=== PATIENT | male | born 1950 | race Caucasian/White ===

== ENCOUNTER 2019-09-17 09:25 | Inpatient (IN) | payer MEDICAID ==
[~2019-09-17] VITALS: Ht 165.1 cm; Wt 89.8 kg
[~2019-09-17 09:25] MED LIST: ASPI-1158; DOCU-138; FLUO20CA33; INS7030; INSLAN; LISI10TA5; MEMA10TA2; METF500T3; MOM; NIFE60TA18; RANI150C12; SENN8.6C5; TAMS-11
[2019-09-17] MEDS ORDERED: ONDANSETRON HCL 4MG/2ML INJ IV STA (09:54)
[2019-09-17] MEDS ORDERED: SODIUM CHLORIDE 0.9% 1,000 ML IV ONE (09:54)
[2019-09-17 10:20] LABS: BASOPHILS % 0.3 % (0.0-2.0); HEMATOCRIT. 43.6 % (42.0-52.0); HEMOGLOBIN. 14.5 g/dL (14.0-18.0); LYMPHOCYTES % 16.6 % (20.0-50.0); MEAN CORPUSCULAR VOLUME 87.4 fL (80.0-94.0); MEAN PLATELET VOLUME 10.7 fl (7.4-10.4); MONOCYTES % 10.9 % (2.0-8.0); NEUTROPHILS % 72.2 % (40.0-76.0); PLATELET 189 x1000/uL (130-400); RED BLOOD CELL COUNT 4.99 mill/uL (4.7-6.1); RED CELL DISTRIBUTION WIDTH 14.7 % (11.6-14.6)
[2019-09-17 10:28] LABS: CHLORIDE 100 mEq/L (98-107)
[2019-09-17 10:30] LABS: PROTHROMBIN TIME 10.4 sec (9.6-11.0)
[2019-09-17] MEDS ORDERED: PANTOPRAZOLE SODIUM 40 MG/VIAL IV SCH (13:00)
[2019-09-17] MEDS ORDERED: ONDANSETRON HCL 4MG/2ML INJ IV PRN (13:00)
[2019-09-17] MEDS: MORPHINE SULFATE 2 MG/ML CPJ (NOT FOR IM USE) IV PRN ×2 (14:16→22:12)
[2019-09-17 16:00] VITALS: BP 165/89
[2019-09-17] MEDS: HYDRALAZINE 20MG/ML VIAL IV PRN (16:00)
[2019-09-17 16:24] VITALS: BP 165/89
[2019-09-17] MEDS ORDERED: PNEUMOCOCCAL 23-VAL P-SAC VAC 0.5 ML IM ONE (17:00)
[2019-09-17] MEDS: PANTOPRAZOLE SODIUM 40 MG/VIAL IV SCH (17:10)
[2019-09-17 20:00] VITALS: BP 120/64
[2019-09-17] MEDS ORDERED: DEXTROSE 50% WATER 50ML SYRINGE IV PRN (20:15)
[2019-09-17] MEDS: BLOOD SUGAR DIAGNOSTIC STRIP TEST SCH (21:00)
[2019-09-17] MEDS: INSULIN LISPRO 100 UNITS/ML SUBCUT SCH (22:11)
[2019-09-17] MEDS: DEXT 5%/0.45% NACL 1000ML 1,000 ML IV SCH (22:32)
[2019-09-18] VITALS: BP 164/72
[2019-09-18 04:00] VITALS: BP 170/64
[2019-09-18] MEDS: DEXT 5%/0.45% NACL 1000ML 1,000 ML IV SCH ×3 (05:19→20:29)
[2019-09-18] MEDS: MORPHINE SULFATE 2 MG/ML CPJ (NOT FOR IM USE) IV PRN (05:20)
[2019-09-18] MEDS: BLOOD SUGAR DIAGNOSTIC STRIP TEST SCH ×4 (06:00→21:03)
[2019-09-18 06:01] VITALS: BP 158/63
[2019-09-18] MEDS: INSULIN LISPRO 100 UNITS/ML SUBCUT SCH ×4 (06:28→21:12)
[2019-09-18 06:30] LABS: CHLORIDE 104 mEq/L (98-107)
[2019-09-18 06:31] LABS: BASOPHILS % 0.2 % (0.0-2.0); EOSINOPHILS % 0.3 % (0.0-5.0); HEMOGLOBIN. 11.8 g/dL (14.0-18.0); MEAN CORPUSCULAR HEMOGLOBIN 29.4 pg (28.0-32.0); MEAN CORPUSCULAR VOLUME 87.1 fL (80.0-94.0); MEAN PLATELET VOLUME 10.7 fl (7.4-10.4); MONOCYTES % 11.8 % (2.0-8.0); NEUTROPHILS % 61.7 % (40.0-76.0); PLATELET 163 x1000/uL (130-400); RED BLOOD CELL COUNT 4.02 mill/uL (4.7-6.1); RED CELL DISTRIBUTION WIDTH 14.8 % (11.6-14.6)
[2019-09-18 08:00] VITALS: BP 145/63
[2019-09-18] MEDS: PANTOPRAZOLE SODIUM 40 MG/VIAL IV SCH ×2 (08:57→21:11)
[2019-09-18 12:00] VITALS: BP 147/63
[2019-09-18] MEDS ORDERED: MIDAZOLAM HCL 5 MG/5 ML VIAL IV PRN (14:07)
[2019-09-18] MEDS ORDERED: MIDAZOLAM HCL 5 MG/5 ML VIAL ONE (14:07)
[2019-09-18] MEDS ORDERED: FENTANYL CITRATE/PF 50MCG/ML 2ML VIAL ONE (14:07)
[2019-09-18] MEDS ORDERED: FENTANYL CITRATE/PF 50MCG/ML 2ML VIAL IV PRN (14:07)
[2019-09-18] MEDS ORDERED: DIAZEPAM 5 MG/ML 2ML CPJ ONE (14:19)
[2019-09-18] MEDS ORDERED: DIAZEPAM 5 MG/ML 2ML CPJ IV PRN (14:19)
[2019-09-18] MEDS: SUCRALFATE 1G TABLET PO SCH ×2 (17:37→21:12)
[2019-09-18] MEDS: METOCLOPRAMIDE HCL 10MG/2ML VIAL IV SCH ×2 (17:38→21:12)
[2019-09-18 17:56] LABS: HEMATOCRIT 34.4 % (42.0-52.0); HEMOGLOBIN 11.5 g/dL (14.0-18.0)
[2019-09-18 20:00] VITALS: BP 153/65
[2019-09-19] VITALS: BP 151/56
[2019-09-19 04:00] VITALS: BP 136/56
[2019-09-19 06:15] LABS: BASOPHILS % 0.4 % (0.0-2.0); EOSINOPHILS % 2.8 % (0.0-5.0); HEMATOCRIT. 36.2 % (42.0-52.0); HEMOGLOBIN. 11.8 g/dL (14.0-18.0); LYMPHOCYTES % 32.8 % (20.0-50.0); MEAN CORPUSCULAR HEMOGLOBIN 28.6 pg (28.0-32.0); MEAN PLATELET VOLUME 10.6 fl (7.4-10.4); MONOCYTES % 10.8 % (2.0-8.0); NEUTROPHILS % 53.2 % (40.0-76.0); PLATELET 152 x1000/uL (130-400); RED BLOOD CELL COUNT 4.12 mill/uL (4.7-6.1); RED CELL DISTRIBUTION WIDTH 14.7 % (11.6-14.6)
[2019-09-19 06:21] LABS: CHLORIDE 105 mEq/L (98-107)
[2019-09-19] MEDS: BLOOD SUGAR DIAGNOSTIC STRIP TEST SCH ×4 (06:46→21:56)
[2019-09-19] MEDS: SUCRALFATE 1G TABLET PO SCH ×4 (06:52→21:56)
[2019-09-19] MEDS: METOCLOPRAMIDE HCL 10MG/2ML VIAL IV SCH ×4 (06:52→21:56)
[2019-09-19] MEDS: INSULIN LISPRO 100 UNITS/ML SUBCUT SCH ×4 (06:53→21:55)
[2019-09-19 08:00] VITALS: BP 138/55
[2019-09-19] MEDS: PANTOPRAZOLE SODIUM 40 MG/VIAL IV SCH ×2 (08:37→21:55)
[2019-09-19 12:00] VITALS: BP 150/63
[2019-09-19] MEDS ORDERED: PNEUMOCOCCAL 23-VAL P-SAC VAC 0.5 ML IM ONE (13:00)
[2019-09-19 16:00] VITALS: BP 142/56
[2019-09-19 20:00] VITALS: BP 157/67
[2019-09-20] VITALS (7 sets, daily range): BP systolic 132–191; BP diastolic 60–84
[2019-09-20] MEDS: METOCLOPRAMIDE HCL 10MG/2ML VIAL IV SCH ×2 (06:04→12:32)
[2019-09-20] MEDS: BLOOD SUGAR DIAGNOSTIC STRIP TEST SCH ×2 (06:04→12:08)
[2019-09-20] MEDS: SUCRALFATE 1G TABLET PO SCH ×2 (06:04→12:32)
[2019-09-20] MEDS: INSULIN LISPRO 100 UNITS/ML SUBCUT SCH ×2 (06:12→12:32)
[2019-09-20] MEDS: PANTOPRAZOLE SODIUM 40 MG/VIAL IV SCH (08:42)
[2019-09-20] MEDS: HYDRALAZINE 20MG/ML VIAL IV PRN ×3 (08:51→18:19)
[2019-09-20] MEDS ORDERED: HYDRALAZINE HCL 50MG TABLET PO NR (13:00)
== END 2019-09-20 18:30 | DRG 242 ==
LOC: ER 09:41 → EDBEDREQTM 11:54 → EDBEDREQ 11:54 → 5WST 12:42 → EDBEDREQ 12:44 → EDBEDREQTM 12:44 → ENRESERV 13:32 → 5WST 16:03
PROVIDERS: ADMIT Hospitalist; ATTEND Hospitalist
PROC: 0D9670Z Drainage of Stomach with Drainage Device, Via Natural or Artificial Opening (ICD-10-PCS; 2019-09-17)
PROC: 0DB78ZX Excision of Stomach, Pylorus, Via Natural or Artificial Opening Endoscopic, Diagnostic (ICD-10-PCS; principal; 2019-09-18)
DX: K22.11 Ulcer of esophagus with bleeding (principal); E44.1 Mild protein-calorie malnutrition; E87.1 Hypo-osmolality and hyponatremia; E66.9 Obesity, unspecified; K29.70 Gastritis, unspecified, without bleeding; E11.9 Type 2 diabetes mellitus without complications; F32.9 Major depressive disorder, single episode, unspecified; I10 Essential (primary) hypertension; N40.0 Benign prostatic hyperplasia without lower urinary tract symptoms; Z87.891 Personal history of nicotine dependence; Z86.73 Personal history of transient ischemic attack (TIA), and cerebral infarction without residual deficits; Z79.82 Long term (current) use of aspirin; Z68.32 Body mass index [BMI] 32.0-32.9, adult
CPT/HCPCS: 36415; 71045; 74176; 80053; 82962; 83036; 85014; 85018; 85025; 86850; 86900; 88305; 88312; 88313; 90732; 93005; 93970; 96374; 99291; C9113; J0360; J1815; J2250; J2270; J2405; J2765; J3010; J7030

== ENCOUNTER 2020-03-06 13:58 | Inpatient (IN) | payer MEDICAID ==
[~2020-03-06] VITALS: Ht 165.1 cm; Wt 88.9 kg
[~2020-03-06 13:58] MED LIST changes: -ASPI-1158; +ASPI-1158 PO; -DOCU-138; +DOCU-138 PO; -FLUO20CA33; +FLUO20CA33 PO; -INSLAN; +INSLAN SUBCUT; -LISI10TA5; +LISI10TA5 PO; -MEMA10TA2; +MEMA10TA2 PO; -NIFE60TA18; +NIFE60TA18 PO; -SENN8.6C5; +SENN8.6C5 PO; -TAMS-11; +TAMS-11 PO
[2020-03-06] MEDS ORDERED: MORPHINE SULFATE 4 MG/ML CPJ (NOT FOR IM USE) IV STA (15:19)
[2020-03-06] MEDS ORDERED: ACETAMINOPHEN 325MG TABLET PO STA (15:19)
[2020-03-06 15:36] LABS: BASOPHILS % 0.3 % (0.0-2.0); EOSINOPHILS % 1.7 % (0.0-5.0); HEMATOCRIT. 42.9 % (42.0-52.0); LYMPHOCYTES % 37.5 % (20.0-50.0); MEAN CORPUSCULAR HEMOGLOBIN 28.3 pg (28.0-32.0); MEAN CORPUSCULAR VOLUME 86.6 fL (80.0-94.0); MEAN PLATELET VOLUME 10.7 fl (7.4-10.4); MONOCYTES % 8.9 % (2.0-8.0); NEUTROPHILS % 51.6 % (40.0-76.0); PLATELET 233 x1000/uL (130-400); RED BLOOD CELL COUNT 4.96 mill/uL (4.7-6.1); RED CELL DISTRIBUTION WIDTH 15.8 % (11.6-14.6)
[2020-03-06 15:48] LABS: CLARITY URINE CLEAR (CLEAR); COLOR URINE YELLOW (YELLOW); KETONES URINE TRACE (NEGATIVE); LEUKOCYTE ESTERASE URINE NEGATIVE (NEGATIVE); NITRITE URINE NEGATIVE (NEGATIVE); OCCULT BLOOD URINE NEGATIVE (NEGATIVE); PROTEIN URINE 3+ (NEGATIVE); SPECIFIC GRAVITY URINE 1.037 (1.005-1.030)
[2020-03-06 16:11] LABS: CHLORIDE 103 mEq/L (98-107)
[2020-03-06] MEDS ORDERED: DEXTROSE 50% WATER 50ML SYRINGE IV PRN (19:30)
[2020-03-06] MEDS ORDERED: ZOLPIDEM TARTRATE 5MG TABLET PO PRN (19:30)
[2020-03-06] MEDS ORDERED: ACETAMINOPHEN 325MG TABLET PO PRN (19:30)
[2020-03-06] MEDS ORDERED: SENNOSIDES 8.6MG TABLET PO PRN (19:30)
[2020-03-06] MEDS ORDERED: CLONIDINE 0.1MG TABLET PO PRN (19:30)
[2020-03-06] MEDS ORDERED: ONDANSETRON HCL 4MG/2ML INJ IV PRN (19:30)
[2020-03-06] MEDS ORDERED: DIPHENHYDRAMINE 50MG/ML VIAL IV PRN (19:30)
[2020-03-06] MEDS ORDERED: MAGNESIUM HYDROXIDE 400MG/5ML 30ML UDC PO PRN (19:30)
[2020-03-06] MEDS ORDERED: MAGNESIUM/ALUMINUM HYDROXIDE/SIMETHICONE 30ML UDC PO PRN (19:30)
[2020-03-06 21:05] VITALS: BP 165/79
[2020-03-06] MEDS: FAMOTIDINE 20MG TABLET PO SCH (21:59)
[2020-03-06] MEDS: ENOXAPARIN 40MG/0.4ML SYR SUBCUT SCH (21:59)
[2020-03-06] MEDS: BLOOD SUGAR DIAGNOSTIC STRIP TEST SCH (22:00)
[2020-03-06] MEDS: SODIUM CHLORIDE 0.9% INJ 3ML FLUSH IVF SCH (22:00)
[2020-03-06] MEDS: INSULIN GLARGINE UD 100 UNITS/ML SYR SUBCUT SCH (22:00)
[2020-03-06] MEDS: INSULIN LISPRO 100 UNITS/ML SUBCUT SCH (22:01)
[2020-03-07] VITALS: BP 152/77
[2020-03-07 04:00] VITALS: BP 155/75
[2020-03-07] MEDS: BLOOD SUGAR DIAGNOSTIC STRIP TEST SCH ×4 (06:13→21:18)
[2020-03-07] MEDS: SODIUM CHLORIDE 0.9% INJ 3ML FLUSH IVF SCH ×3 (06:13→21:18)
[2020-03-07 08:00] VITALS: BP 133/60
[2020-03-07] MEDS: FLUOXETINE HCL 20MG CAPSULE PO SCH (08:57)
[2020-03-07] MEDS: INSULIN LISPRO 100 UNITS/ML SUBCUT SCH ×4 (08:57→21:18)
[2020-03-07] MEDS: ACETAMINOPHEN 325MG TABLET PO PRN ×2 (08:57→16:59)
[2020-03-07] MEDS: TAMSULOSIN HCL 0.4MG SR CAPSULE PO SCH (08:58)
[2020-03-07] MEDS: ASPIRIN 81MG EC TABLET PO SCH (08:58)
[2020-03-07] MEDS: FAMOTIDINE 20MG TABLET PO SCH ×2 (08:58→21:17)
[2020-03-07] MEDS: NIFEDIPINE XL 60MG TAB PO SCH (08:58)
[2020-03-07] MEDS: MEMANTINE HCL 10MG TABLET PO SCH (08:58)
[2020-03-07] MEDS: METFORMIN HCL 850MG TABLET PO SCH ×2 (08:58→16:57)
[2020-03-07] MEDS: LISINOPRIL 10MG TABLET PO SCH (08:58)
[2020-03-07] MEDS: DOCUSATE SODIUM 100MG CAPSULE PO SCH ×2 (08:58→16:58)
[2020-03-07 12:00] VITALS: BP 141/68
[2020-03-07 16:00] VITALS: BP 143/66
[2020-03-07 20:00] VITALS: BP 136/68
[2020-03-07] MEDS: ENOXAPARIN 40MG/0.4ML SYR SUBCUT SCH (21:17)
[2020-03-07] MEDS: INSULIN GLARGINE UD 100 UNITS/ML SYR SUBCUT SCH (21:19)
[2020-03-08] VITALS (7 sets, daily range): BP systolic 98–161; BP diastolic 56–78
[2020-03-08] MEDS: SODIUM CHLORIDE 0.9% INJ 3ML FLUSH IVF SCH ×2 (05:58→11:50)
[2020-03-08] MEDS: BLOOD SUGAR DIAGNOSTIC STRIP TEST SCH ×3 (06:20→16:57)
[2020-03-08] MEDS: INSULIN LISPRO 100 UNITS/ML SUBCUT SCH ×3 (07:18→16:56)
[2020-03-08] MEDS: NIFEDIPINE XL 60MG TAB PO SCH (08:19)
[2020-03-08] MEDS: METFORMIN HCL 850MG TABLET PO SCH ×2 (08:19→16:56)
[2020-03-08] MEDS: FLUOXETINE HCL 20MG CAPSULE PO SCH (08:20)
[2020-03-08] MEDS: TAMSULOSIN HCL 0.4MG SR CAPSULE PO SCH (08:20)
[2020-03-08] MEDS: FAMOTIDINE 20MG TABLET PO SCH (08:20)
[2020-03-08] MEDS: ASPIRIN 81MG EC TABLET PO SCH (08:20)
[2020-03-08] MEDS: MEMANTINE HCL 10MG TABLET PO SCH (08:20)
[2020-03-08] MEDS: DOCUSATE SODIUM 100MG CAPSULE PO SCH ×2 (08:20→16:56)
[2020-03-08] MEDS: LISINOPRIL 10MG TABLET PO SCH (08:20)
[2020-03-08] MEDS: ACETAMINOPHEN 325MG TABLET PO PRN (10:33)
== END 2020-03-08 19:35 | DRG 58 ==
LOC: ER 14:08 → 6WST 18:21 → EDBEDREQ 18:25 → ENRESERV 20:08
PROVIDERS: ADMIT Internal Medicine; ATTEND Internal Medicine
DX: G93.89 Other specified disorders of brain (principal); G45.9 Transient cerebral ischemic attack, unspecified; F32.9 Major depressive disorder, single episode, unspecified; E11.65 Type 2 diabetes mellitus with hyperglycemia; F03.90 Unspecified dementia, unspecified severity, without behavioral disturbance, psychotic disturbance, mood disturbance, and anxiety; I10 Essential (primary) hypertension; R41.89 Other symptoms and signs involving cognitive functions and awareness; I69.354 Hemiplegia and hemiparesis following cerebral infarction affecting left non-dominant side; Z87.19 Personal history of other diseases of the digestive system; Z79.82 Long term (current) use of aspirin; Z79.84 Long term (current) use of oral hypoglycemic drugs; Z79.4 Long term (current) use of insulin; Z79.899 Other long term (current) drug therapy
CPT/HCPCS: 36415; 70551; 80053; 81003; 82962; 83036; 85025; 93005; 93306; 93970; 96374; 99285; J1650; J1815; J2270